=== PATIENT | female | born 1980 | race Two or more races ===

== ENCOUNTER 2024-06-26 07:28 | Emergency (ER) | payer OTHER ==
[~2024-06-26] VITALS: Ht 154.9 cm; Wt 65.8 kg
[2024-06-26] MEDS ORDERED: AVAPRO75 MG PO (07:38)
[2024-06-26] MEDS ORDERED: CARVEDILOL ER40 MG PO (07:38)
[2024-06-26 09:38] LABS: HEMATOCRIT 37.3 % (36.0-45.00); HEMOGLOBIN 12.7 g/dL (12.0-15.00); MEAN CORPUSCULAR HEMOGLOBIN 31.8 pg (27.00-32.0); MEAN CORPUSCULAR HGB CONC 34.2 g/dl (32.0-36.0); PLATELET COUNT 312 K/uL (150-450); RED BLOOD COUNT 4.01 M/uL (4.00-6.00); RED CELL DISTRIBUTION WIDTH 13.6 % (11.5-14.5)
[2024-06-26 09:41] LABS: CALCIUM 10.4 mg/dL (8.5-10.1); CREATININE SERUM 1.04 mg/dL (0.55-1.02); GFR 57.3; POTASSIUM 3.94 mEq/L (3.5-5.1)
== END 2024-06-26 10:19 | disposition home or self-care (01) ==
LOC: ER 07:30
PROVIDERS: General Practice
DX: R07.89 Other chest pain (principal); I10 Essential (primary) hypertension; Z88.6 Allergy status to analgesic agent